=== PATIENT | female | born 1965 | race American Indian/Alaskan Native ===

== ENCOUNTER 2021-07-23 22:44 | Emergency (ER) | payer OTHER ==
[2021-07-24] MEDS ORDERED: SODIUM CHLORIDE 0.9% 1000 ML 1,000 ML IV ONE (02:28)
[2021-07-24] MEDS ORDERED: MECLIZINE 25 MG TAB PO ONE (02:28)
--- NOTE | 2021-07-24 03:27 | Cat Scan Report ---
CT HEAD WITHOUT CONTRAST INDICATION / CLINICAL INFORMATION: Patient complains of dizziness. TECHNIQUE: All CT scans at this location are performed using CT dose reduction for ALARA by means of automated exposure control. COMPARISON: None available. FINDINGS: BRAIN PARENCHYMA: No acute intracranial hemorrhage. No evidence of recent infarct. No mass effect or midline shift. VENTRICULAR SYSTEM/EXTRA-AXIAL SPACES: Ventricles are normal for age. No extra-axial fluid collection . ORBITS: Normal as visualized. SKELETAL SYSTEM/SOFT TISSUES: Normal bones and soft tissues. PARANASAL SINUSES/MASTOID AIR CELLS: No significant abnormality. ADDITIONAL FINDINGS: None. IMPRESSION: 1. No acute intracranial abnormality. Signer Name: Ramiro Perez MD Signed: 07/24/2021 3:23 AM Workstation Name: [id number]
[2021-07-24 04:40] LABS: Hematocrit 39.8 % (30.3-42.9); Hemoglobin 13.1 gm/dl (10.1-14.3); Mean Corpuscular HGB Conc 33 % (30-34); Mean Corpuscular Volume 92 fl (79-97); Platelet Count 136 K/mm3 (140-440); Red Blood Count 4.34 M/mm3 (3.65-5.03); Red Cell Distribution Width 13.5 % (13.2-15.2)
[2021-07-24 04:50] LABS: Alanine Aminotransferase 23 units/L (7-56); Albumin 4.1 g/dL (3.9-5); BUN/Creatinine Ratio 23; Blood Urea Nitrogen 18 mg/dL (7-17); Hemolysis Index 2
[2021-07-24 05:20] LABS: Total Cells Counted 100
[2021-07-24 05:21] LABS: RBC Morphology Normal
--- NOTE | 2021-07-24 06:12 | Emergency Department Report ---
ED General Adult HPI - General Chief complaint: Dizziness Stated complaint: BODYACHES Source: patient Mode of arrival: Ambulatory Limitations: No Limitations - History of Present Illness Initial comments: Patient is a 55-year-old -Swedish female with a history of hyperlip idemia who presented to the ED with complaint of acute onset persistent nasal and sinus congestion, diffuse body aches and pains, lightheadedness, frontal sinus pressure and headache, nasal and sinus congestion, subjective fever and chills, persistent dry cough for the last 1 week, worse in the last 2 days. Patient states that lightheadedness is positional and usually occurred when she gets up. Patient denies nausea, vomiting, chest pain or shortness of breath, fever and chills, diarrhea, dysuria, urinary frequency and urgency or palpitations. MD Complaint: Nasal and sinus congestion, frontal sinus pressure headache, lightheadednes -: Sudden, week(s) (1) Location: head, chest Radiation: non-radiation Severity scale (0 -10): 7 Quality: aching, sharp Consistency: intermittent Improves with: none Worsens with: movement Associated Symptoms: denies other symptoms, cough, fever/chills, headaches, loss of appetite, malaise. denies: confusion, chest pain, diaphoresis, nausea/vomiting, rash, seizure, shortness of breath, syncope, weakness Treatments Prior to Arrival: none - Related Data Previous Rx's Medication Instructions Recorded Last Taken Type Amoxicillin [Amoxicillin TAB] 875 mg PO Q12H #20 tablet 07/24/21 Unknown Rx Ibuprofen [Motrin] 600 mg PO Q8H PRN #30 tablet 07/24/21 Unknown Rx Meclizine [Antivert] 25 mg PO TID PRN #30 tablet 07/24/21 Unknown Rx Allergies Allergy/AdvReac Type Severity Reaction Status Date / Time No Known Allergies Allergy Unverified 07/23/21 22:49 ED Review of Systems ROS: Stated complaint: BODYACHES Other details as noted in HPI Constitutional: chills, fever, malaise, weakness Eyes: denies: eye pain, eye discharge, vision change ENT: congestion, other (Frontal sinus pressure and headache). denies: ear pain, throat pain, dental pain, hearing loss Respiratory: cough. denies: shortness of breath, SOB with exertion, SOB at rest, wheezing Cardiovascular: denies: as per HPI, chest pain, palpitations, dyspnea on ex ertion, orthopnea, edema, syncope, paroxysmal nocturnal dyspnea, other Endocrine: no symptoms reported Gastrointestinal: denies: abdominal pain, nausea, vomiting, diarrhea, constipation, hematochezia Genitourinary: denies: urgency, dysuria, discharge Musculoskeletal: arthralgia, myalgia. denies: back pain, joint swelling Skin: denies: rash, lesions Neurological: headache. denies: weakness, paresthesias Psychiatric: denies: anxiety, depression Hematological/Lymphatic: denies: easy bleeding, easy bruising ED Past Medical Hx - Past Medical History Previous Medical History?: No - Surgical History Past Surgical History?: No - Medications Home Medications: Home Medications Medication Instructions Recorded Confirmed Last Taken Type Amoxicillin [Amoxicillin TAB] 875 mg PO Q12H #20 tablet 07/24/21 Unknown Rx Ibuprofen [Motrin] 600 mg PO Q8H PRN #30 tablet 07/24/21 Unknown Rx Meclizine [Antivert] 25 mg PO TID PRN #30 tablet 07/24/21 Unknown Rx ED Physical Exam - General Limitations: No Limitations General appearance: alert, in no apparent distress - Head Head exam: Present: atraumatic, normocephalic, normal inspection - Eye Eye exam: Present: normal appearance, PERRL, EOMI Pupils: Present: normal accommodation - ENT ENT exam: Present: normal orophraynx, mucous membranes moist, TM's normal bilaterally, normal external ear exam, other (Palpable frontal sinus tenderness; grossly congested nasal passages) - Neck Neck exam: Present: normal inspection, full ROM - Respiratory Respiratory exam: Present: normal lung sounds bilaterally. Absent: respiratory distress, wheezes, rales, rhonchi, chest wall tenderness, accessory muscle use, decreased breath sounds, prolonged expiratory - Cardiovascular Cardiovascular Exam: Present: regular rate, normal rhythm, normal heart sounds. Absent: systolic murmur, diastolic murmur, rubs, gallop - GI/Abdominal GI/Abdominal exam: Present: soft, normal bowel sounds. Absent: tenderness, guarding, rebound, hyperactive bowel sounds, hypoactive bowel sounds, organomegaly - Extremities Exam Extremities exam: Present: normal inspection, full ROM, normal capillary refill - Back Exam Back exam: Present: normal inspection, full ROM. Absent: tenderness, CVA tenderness (R), CVA tenderness (L), muscle spasm, paraspinal tenderness, vertebral tenderness - Neurological Exam Neurological exam: Present: alert, oriented X3, CN II-XII intact, normal gait, reflexes normal - Psychiatric Psychiatric exam: Present: normal affect, normal mood - Skin Skin exam: Present: warm, dry, intact, normal color. Absent: rash ED Course Vital Signs 07/23/21 22:47 Temperature 98.6 F Pulse Rate 81 Respiratory 16 Rate Blood Pressure 111/65 O2 Sat by Pulse 100 Oximetry ED Medical Decision Making - Lab Data Result diagrams: 07/24/21 04:04 07/24/21 04:04 - Radiology Data Radiology results: report reviewed, image reviewed [facility] [address] [place] [address] Cat Scan Report Signed Patient: KYLIE MARTE MR#: [id number] 3 : 1965 Acct:[id number] Age/Sex: 55 / F ADM Date: 07/23/21 Loc: ED Attending Dr: Ordering Physician: GABRIEL CHAIDEZ Date of Service: 07/24/21 Procedure(s): CT head/brain wo con Accession Number(s): [id number] cc: GABRIEL CHAIDEZ CT HEAD WITHOUT CONTRAST INDICATION / CLINICAL INFORMATION: Patient complains of dizziness. TECHNIQUE: All CT scans at this location are performed using CT dose reduction for ALARA by means of automated exposure control. COMPARISON: None available. FINDINGS: BRAIN PARENCHYMA: No acute intracranial hemorrhage. No evidence of recent infarct. No mass effect or midline shift. VENTRICULAR SYSTEM/EXTRA-AXIAL SPACES: Ventricles are normal for age. No extra- axial fluid collection. ORBITS: Normal as visualized. SKELETAL SYSTEM/SOFT TISSUES: Normal bones and soft tissues. PARANASAL SINUSES/MASTOID AIR CELLS: No significant abnormality. ADDITIONAL FINDINGS: None. IMPRESSION: 1. No acute intracranial abnormality. Signer Name: Ramiro Perez MD Signed: 07/24/2021 3:23 AM Workstation Name: [id number] Transcribed By: POLINA Dictated By: Ramiro Perez MD Electronically Authenticated By: Ramiro Perez MD Signed Date/Time: 07/24/21322 DD/ 1 TD/TT: Chest x-ray shows no acute cardiopulmonary abnormalities or pneumonitis - Medical Decision Making This is a 55-year-old -Swedish female with a history of hyperlipidemia who presented to the ED with complaint of acute onset persistent nasal and sinus congestion, diffuse body aches and pains, lightheadedness, frontal sinus pressure and headache, nasal and sinus congestion, subjective fever and chills, persistent dry cough for the last 1 week, worse in the last 2 days. Patient states that lightheadedness is positional and usually occurred when she gets up. In the ED, patient is alert and oriented x3 and is not in any distress. Patient was treated in the ED with normal saline 1 L IV bolus x1, also given m eclizine 50 mg p.o. x1. EKG shows normal sinus rhythm with a ventricular rate of [address] or T wave abnormalities. On reevaluation, patient felt better, lab test results were reviewed and are all nonactionable. Chest x-ray showed no acute cardiopulmonary abnormalities or pneumonitis. Head CT scan without contrast also showed no acute intracranial abnormalities or hemorrhage. On reevaluation, patient felt better, orthostatic vital signs were unremarkable. Patient was discharged home on medications and advised to follow- up with her primary care physician in 7 to 10 days for reevaluation. Patient is advised return to the ED immediately if symptoms get worse. - Differential Diagnosis sinusitis; pneumonia; PE; ACS; URI; Dehydration; Influenza Critical care attestation.: If time is entered above; I have spent that time in minutes in the direct care of this critically ill patient, excluding procedure time. ED Disposition Clinical Impression: Dizziness, nonspecific, Orthostatic lightheadedness, Acute upper respiratory infection Acute frontal sinusitis, unspecified Qualifiers: Recurrence: non-recurrent Qualified Code(s): J01.10 - Acute frontal sinusitis, unspecified Disposition: 01 HOME / SELF CARE / HOMELESS Is pt being admited?: No Does the pt Need Aspirin: No Condition: Stable Instructions: Sinusitis, Adult, [id number], Upper Respiratory Infection, Adult, [id number], Dizziness, [id number] Additional Instructions: All lab test results were reviewed and are all nonactionable. Chest x-ray showed no acute cardiopulmonary abnormalities or pneumonitis. Head CT scan without contrast showed no acute intracranial abnormalities or hemorrhage. Therefore take medication with food, drink plenty of fluids and follow-up with your primary care physician in 7 to 10 days for reevaluation. Return to the ED immediately if symptoms get worse. Prescriptions: Amoxicillin [Amoxicillin TAB] 875 mg PO Q12H #20 tablet Meclizine [Antivert] 25 mg PO TID PRN #30 tablet PRN Reason: dizziness Ibuprofen [Motrin] 600 mg PO Q8H PRN #30 tablet PRN Reason: Pain Referrals: LEANN BLAND MD [Primary Care Provider] - 3-5 Days Time of Disposition: 06:14 Print Language: NEPALI
[2021-07-24 07:15] VITALS: BP 114/72
--- NOTE | 2021-07-24 15:45 | XRay Report ---
CHEST 1 VIEW 07/24/2021 2:48 AM INDICATION / CLINICAL INFORMATION: dizziness. COMPARISON: None available. FINDINGS: SUPPORT DEVICES: None. HEART / MEDIASTINUM: No significant abnormality. LUNGS / PLEURA: Mild linear atelectasis/scarring left lower lobe. No significant pulmonary or pleural abnormality. No pneumothorax. ADDITIONAL FINDINGS: No significant additional findings. IMPRESSION: 1. No acute findings. Signer Name: Migel Moreno MD Signed: 07/24/2021 3:41 PM Workstation Name: [id number]
--- NOTE | 2021-07-27 10:36 | Electrocardiograph Report ---
[facility] Test Date: 2021-07-24 Test Time: 05:13:18 Pat Name: KYLIE MARTE Department: Room: Gender: F [employer]: [id number] : 1965 Requested By: DANK BRUCE Order Number: [id number] Reading MD: Nicholas Cervantes Measurements Intervals [place] Rate: 65 P: 29 [place]: 163 QRS: 49 QRSD: 77 T: 54 QT: 421 QTc: 438 Interpretive Statements Sinus rhythm Probable left atrial enlargement No previous ECG available for comparison Electronically Signed On 07-27-2021 10:36:06 EST by Nicholas Cervantes
== END 2021-07-24 07:15 | disposition home or self-care (01) ==
LOC: ED 22:44
DX: J06.9 Acute upper respiratory infection, unspecified (principal); J01.10 Acute frontal sinusitis, unspecified; Z79.899 Other long term (current) drug therapy
CPT/HCPCS: 36415; 70450; 71045; 80053; 83880; 84484; 85007; 85025; 85379; 93005; 96360; 99284; J7030; Q0162